=== PATIENT | male | born 1990 | race Two or more races ===

== ENCOUNTER 2020-01-03 20:39 | Emergency (ER) | payer SELFPAY ==
--- NOTE | 2020-01-03 22:01 | NUR ---
Patient left without being traiged or seen by ERMD.
== END 2020-01-03 22:03 | disposition left against medical advice (07) ==
LOC: ER 20:44
DX: R05 Cough (principal); Z53.21 Procedure and treatment not carried out due to patient leaving prior to being seen by health care provider